=== PATIENT | male | born 1985 | race Caucasian/White ===

== ENCOUNTER 2017-12-21 23:51 | Emergency (ER) | payer BC ==
[2017-12-22 06:00] VITALS: BP 110/62
--- NOTE | 2017-12-22 08:49 | RAD ---
indication: Head and neck pain after a fall in the presence of +EtOH. COMPARISON: None A CT scan of the brain and c-spine was performed without intravenous contrast enhancement. Contiguous axial sections were obtained from the lung apices through the vertex. BRAIN: The ventricles, cisterns and sulci are within normal limits. No significant focal abnormality or mass effect is seen. The cuevas-white differentiation is adequately maintained. There is no intracranial hemorrhage. No significant bony abnormality is present. The mastoid air cells are appropriately aerated. The visualized paranasal sinuses are clear. C-SPINE: On the sagittal view images the vertebral bodies and bilateral facet joints are correctly aligned. The dens is intact and the atlantoaxial interval is not widened. The intervertebral body heights are maintained. No acute fracture or dislocation is seen. There is no hyperdense material in the cervical canal to indicate hemorrhage. The visualized musculature and soft tissues are normal. There is no gross lymphadenopathy visualized. The visualized portion of the lung apices are clear. IMPRESSION: 1. No calvarial fracture or acute intracranial hemorrhage. 2. No acute fracture or dislocation of the cervical spine.
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
== END 2017-12-22 06:00 | disposition home or self-care (01) ==
LOC: ED 23:51
DX: F10.129 Alcohol abuse with intoxication, unspecified (principal); S06.9X9A Unspecified intracranial injury with loss of consciousness of unspecified duration, initial encounter; X58.XXXA Exposure to other specified factors, initial encounter; Y92.29 Other specified public building as the place of occurrence of the external cause
CPT/HCPCS: 70450; 72125; 99282